=== PATIENT | male | born 1975 | race Caucasian/White ===

== ENCOUNTER 2018-04-15 15:20 | Emergency (ER) | payer OTHER ==
[~2018-04-15] VITALS: Ht 170.2 cm; Wt 88.5 kg
== END 2018-04-15 17:26 | disposition home or self-care (01) ==
LOC: ER 15:20
DX: S93.491A Sprain of other ligament of right ankle, initial encounter (principal); X50.0XXA Overexertion from strenuous movement or load, initial encounter; Y93.01 Activity, walking, marching and hiking; Y92.480 Sidewalk as the place of occurrence of the external cause; Y99.8 Other external cause status

== ENCOUNTER 2019-02-12 10:49 | Emergency (ER) | payer OTHER ==
[~2019-02-12] VITALS: Ht 170.2 cm; Wt 90.7 kg
[2019-02-12] MEDS ORDERED: BUPROPION HCL75 MG (11:19)
== END 2019-02-12 16:08 | disposition home or self-care (01) ==
LOC: ER 10:49
DX: F60.4 Histrionic personality disorder (principal); R07.1 Chest pain on breathing